=== PATIENT | female | born 1970 | race Caucasian/White ===

== ENCOUNTER 2024-04-14 | Emergency (ER) | payer MEDICAID, OTHER ==
[~2024-04-14] VITALS: Ht 167.6 cm; Wt 102.1 kg
[2024-04-14 00:06] VITALS: BP 153/67; PULSE 99; RESP 16; TEMP 97.5; O2SAT 98
[2024-04-14 00:11] VITALS: BP 153/67; PULSE 99; RESP 16; TEMP 97.5
[2024-04-14 00:20] VITALS: O2SAT 97
[2024-04-14] MEDS: LIDOCAINE/EPI MPF 2%1:200000 10 ML VIAL INJ ONE (00:58)
[2024-04-14] MEDS: NEOMYCIN/POLYMYXIN/BACITRACIN 0.9 GM/1 PKT TP STA (01:03)
== END 2024-04-14 01:40 | disposition home or self-care (01) ==
LOC: MED
DX: S81.011A Laceration without foreign body, right knee, initial encounter (principal); W18.02XA Striking against glass with subsequent fall, initial encounter; Y93.89 Activity, other specified; Y92.090 Kitchen in other non-institutional residence as the place of occurrence of the external cause; Y99.8 Other external cause status
CPT/HCPCS: 12002; 90471; 90715; 99283; J2001